=== PATIENT | male | born 1965 | race African-American/Black ===

== ENCOUNTER 2018-02-01 21:43 | Inpatient (IN) ==
[2018-02-01] MEDS ORDERED: SODIUM CHLORIDE 0.9% 500 ML IV STA (22:19)
[2018-02-01 22:27] LABS: Basophils % 0.1 % (0.0-0.8); Hemoglobin 8.1 GM/DL (14.0-18.0); Immature Granulocytes % 1.1 %; Immature Granulocytes Absolute 0.21 #; Lymphocytes # 0.4 10*3/uL (1.4-4.0); Lymphocytes % 1.8 % (21.2-54.2); Mean Corpuscular Hemoglobin 31 PG (27-34); Mean Corpuscular Volume 101.9 FL (87-102); Monocytes # 0.5 10*3/uL (0.11-0.8); Monocytes % 2.6 % (1.7-12.7); NRBC # 0.05 10*3/uL; Neutrophils # 18.2 10*3/uL (1.4-7.4); Neutrophils % 94.4 % (38.7-73.9); Platelet Count 183 T/CUMM (130-400); Red Blood Count 2.65 MC/CUMM (3.8-5.5); Red Cell Distribution Width 19.4 % (9.3-17.3); White Blood Count 19.3 T/CUMM (4-12)
[2018-02-01 22:43] LABS: Albumin 2.4 G/DL (3.4-5.0); Bilirubin,Total 0.6 MG/DL (0.2-1.0); Calcium 7.5 MG/DL (8.5-10.1); Osmolality,Calculated 279.1 MOS/KG (273-304); Potassium 3.3 MMOL/L (3.5-5.1); Total Protein 6.9 G/DL (6.4-8.3)
[2018-02-01 22:47] LABS: Troponin I Only 0.05 NG/ML (0.00-0.045)
[2018-02-02] MEDS ORDERED: NOREPINEPHRINE 4 MG/4 ML VIAL IV ONE ×3 (00:20→00:29)
[2018-02-02] MEDS ORDERED: CEFEPIME 2,000 MG in SODIUM CHLORIDE 0.9% 100 ML IV STA (00:21)
[2018-02-02] MEDS ORDERED: VANCOMYCIN INJ 1,000 MG in SODIUM CHLORIDE 0.9% 250 ML IV STA (00:21)
[2018-02-02] MEDS ORDERED: VECURONIUM 10 MG VIAL IV ONE (00:48)
[2018-02-02 00:49] LABS: VBG Base Excess 1.5 MEQ/L (0-4); VBG HCO3 25.8 MEQ/L (24-28); VBG Oxygen Saturation 99.4 %; VBG PCO2 48.9 MMHG (41-51); VBG PH 7.355
[2018-02-02] MEDS ORDERED: ROCURONIUM 100 MG/10 ML VIAL IV ONE (00:51)
[2018-02-02] MEDS: NOREPINEPHRINE 8 MG in SODIUM CHLORIDE 0.9% 242 ML IV PRN ×2 (01:02→06:32)
[2018-02-02 01:05] LABS: Lactic Acid 5.1 MMOL/L (0.4-2.0)
[2018-02-02] MEDS ORDERED: CEFEPIME 2,000 MG VIAL ONE (01:05)
[2018-02-02] MEDS ORDERED: SODIUM CHLORIDE 0.9% 100 ML IV ONE (01:05)
[2018-02-02] MEDS ORDERED: VANCOMYCIN 1,000 MG VIAL ONE (01:05)
[2018-02-02] MEDS ORDERED: ONDANSETRON 4 MG/2 ML VIAL IV PRN (01:19)
[2018-02-02] MEDS ORDERED: SODIUM CHLORIDE 0.9% 1,000 ML IV SCH (01:30)
[2018-02-02] MEDS ORDERED: SODIUM CHLORIDE 0.9% 500 ML IV STA (01:33)
[2018-02-02] MEDS ORDERED: DEXTROSE 50% 25 GM/50 ML VIAL IV PRN (05:28)
[2018-02-02] MEDS ORDERED: GLUCAGON 1 MG VIAL IM PRN (05:28)
[2018-02-02 05:40] LABS: Band Neutrophils 10 % (0-10); Platelet Estimate Normal; Segmented Neutrophils 88 % (50-85); Total Cells Counted 100
[2018-02-02] MEDS ORDERED: POTASSIUM CHLORIDE 20 MEQ TABLET PO ONE (06:00)
[2018-02-02] MEDS ORDERED: INSULIN LISPRO 100 UNIT/ML SUBCUT SCH ×2 (06:00→08:00)
[2018-02-02 06:04] LABS: Basophils % 0.1 % (0.0-0.8); Hematocrit 20.8 VOL% (42.0-52.0); Immature Granulocytes % 3.8 %; Immature Granulocytes Absolute 1.52 #; Lymphocytes # 0.9 10*3/uL (1.4-4.0); Lymphocytes % 2.1 % (21.2-54.2); Mean Corpuscular HGB Conc 31.7 GM/DL (32-36); Mean Corpuscular Hemoglobin 31 PG (27-34); Mean Platelet Volume 11.1 FL (9.6-12.0); Monocytes # 1.6 10*3/uL (0.11-0.8); Monocytes % 3.9 % (1.7-12.7); NRBC # 0.08 10*3/uL; Neutrophils # 35.7 10*3/uL (1.4-7.4); Neutrophils % 90.1 % (38.7-73.9); Red Cell Distribution Width 19.1 % (9.3-17.3)
[2018-02-02 06:26] LABS: Calcium 7.3 MG/DL (8.5-10.1); Osmolality,Calculated 281.4 MOS/KG (273-304); Potassium 3.9 MMOL/L (3.5-5.1)
[2018-02-02 06:35] LABS: Lactic Acid 3.7 MMOL/L (0.4-2.0)
[2018-02-02] MEDS ORDERED: ALBUTEROL/IPRATROPIUM 3 ML NEB RESP TX SCH (07:00)
[2018-02-02] MEDS ORDERED: VANCOMYCIN INJ 1,000 MG in SODIUM CHLORIDE 0.9% 250 ML IV ONE (08:00)
[2018-02-02 08:01] LABS: Hemoglobin 6.6 GM/DL (14.0-18.0); Platelet Count 223 T/CUMM (130-400); White Blood Count 39.7 T/CUMM (4-12)
[2018-02-02] MEDS ORDERED: hydrOXYzine HCL 25 MG/1 ML VIAL IM PRN (08:06)
[2018-02-02 08:09] LABS: Anisocytosis 1+; Band Neutrophils 16 % (0-10); Hypochromasia 1+; Lymphocytes 1 % (20-55); Macrocytosis 1+; Myelocytes 1 %; Segmented Neutrophils 77 % (50-85); Total Cells Counted 100
[2018-02-02 08:10] LABS: Platelet Estimate Normal; Polychromasia Slight
[2018-02-02] MEDS ORDERED: SEVELAMER CARBONATE 800 MG TABLET PO SCH (09:00)
[2018-02-02] MEDS ORDERED: ESCITALOPRAM 10 MG TABLET PO SCH (09:00)
[2018-02-02] MEDS ORDERED: ASPIRIN CHEW 81 MG TABLET PO SCH (09:00)
[2018-02-02] MEDS ORDERED: METOPROLOL TARTRATE 50 MG TABLET PO SCH (09:00)
[2018-02-02] MEDS ORDERED: MUPIROCIN 2% OINT 22 GM TUBE TOP SCH (09:00)
[2018-02-02 09:32] LABS: ABG Base Excess -5.8 MMOL/L (-2.5-2.5); ABG HCO3 19.4 MMOL/L (20-26); ABG Oxygen Saturation 78.8 % (95-100); ABG PO2 61.6 MM HG (80-95)
[2018-02-02 09:33] LABS: ABG PCO2 95.2 MM HG (35-48)
[2018-02-02 09:58] LABS: Troponin I Only 0.099 NG/ML (0.00-0.045)
[2018-02-02] MEDS ORDERED: SODIUM BICARBONATE 50 MEQ/50 ML SYRINGE IV ONE (10:00)
[2018-02-02 14:19] VITALS: BP 54/17
[2018-02-02] MEDS ORDERED: ATORVASTATIN 80 MG TABLET PO SCH (21:00)
[2018-02-02] MEDS ORDERED: CEFEPIME 1,000 MG in SYRINGE 1 EACH IV SCH (23:00)
[2018-02-04] MEDS ORDERED: VANCOMYCIN INJ 2,000 MG in SODIUM CHLORIDE 0.9% 500 ML IV PRN (14:00)
== END 2018-02-02 10:02 | disposition expired | DRG 871 ==
LOC: EDUNIT# → EDBD → N.ED 21:43 → N.CC 02-02 01:19 → N.EDINP 02-02 01:19 → N.CC 02-02 02:40
PROVIDERS: ADMIT Family Medicine; ATTEND Family Medicine